=== PATIENT | female | born 1950 | race Two or more races ===

== ENCOUNTER 2022-04-24 09:14 | Day surgery (SDC) | payer OTHER ==
[~2022-04-24] VITALS: Ht 180.3 cm; Wt 97.5 kg
[~2022-04-24 09:14] MED LIST: ASPI1TAB20 PO; GABA-339 PO; GLIM4TAB42 PO; LIDO5DIS21 TOP; LOSA100T33 PO; NAPR375T27 PO; PANT40TA2 PO; ROSU5TAB5 PO
[2022-04-24] MEDS ORDERED: MIDAZOLAM HCL 2MG/2ML 2ml VIAL (1mg/ml) ONE (10:13)
[2022-04-24] MEDS ORDERED: fentaNYL CITRATE 100 MCG/2 ML VL ONE (10:13)
[2022-04-24] MEDS ORDERED: PROPOFOL 10 MG/ML 20 ML IV ONE (10:13)
[2022-04-24] MEDS ORDERED: DexAMETHasone SOD PHOS 10MG/1ML VIAL INJ ONE (10:13)
[2022-04-24] MEDS ORDERED: SODIUM CHLORIDE LOCK 10 ML ONE (10:13)
[2022-04-24] MEDS ORDERED: ONDANSETRON HCL 4 MG/2 ML VIAL ONE (10:13)
[2022-04-24] MEDS ORDERED: ceFAZolin 1GM/50ML 100 ML IV ONE (10:18)
[2022-04-24] MEDS ORDERED: METOCLOPRAMIDE HCL 5MG/ml INJ 2ml VIAL IV PRN (10:45)
[2022-04-24] MEDS ORDERED: HYDROmorphone HCL 2 MG/ML VL/or syr IV PRN ×2 (10:45)
[2022-04-24] MEDS ORDERED: MORPHINE SULFATE 4 MG/ML SYR/VIAL IV PRN (10:45)
[2022-04-24] MEDS ORDERED: VANCOMYCIN HCL 1000 MG VL ONE (10:52)
[2022-04-24] MEDS ORDERED: LIDOCAINE W/ EPINEPHRINE 2% INJ 20ML VIAL ONE (10:54)
[2022-04-24] MEDS ORDERED: BUPIVACAINE W/ EPINEPH 0.5% INJ 50ML MDV IJ ONE (10:54)
[2022-04-24] MEDS ORDERED: MORPHINE SULF PF 5 MG/10 ML VIAL ONE (10:55)
[2022-04-24 12:50] VITALS: BP 121/89
== END 2022-04-24 12:50 | disposition home or self-care (01) ==
LOC: SUR 09:14
PROVIDERS: ATTEND Anesthesiology Pain Medicine
DX: Z45.42 Encounter for adjustment and management of neurostimulator (principal); T85.840A Pain due to nervous system prosthetic devices, implants and grafts, initial encounter; M96.1 Postlaminectomy syndrome, not elsewhere classified; M51.16 Intervertebral disc disorders with radiculopathy, lumbar region; M51.36 Other intervertebral disc degeneration, lumbar region; M48.062 Spinal stenosis, lumbar region with neurogenic claudication; M47.816 Spondylosis without myelopathy or radiculopathy, lumbar region; E78.5 Hyperlipidemia, unspecified; I10 Essential (primary) hypertension; E11.42 Type 2 diabetes mellitus with diabetic polyneuropathy; G89.29 Other chronic pain; E66.01 Morbid (severe) obesity due to excess calories; Z98.890 Other specified postprocedural states; Z79.899 Other long term (current) drug therapy; Z88.5 Allergy status to narcotic agent; Z68.30 Body mass index [BMI] 30.0-30.9, adult
CPT/HCPCS: 63661; 63688; 64585; 82962; J0690; J1100; J2250; J2270; J2405; J2704; J3010; J3370; U0003; 76000